=== PATIENT | female | born 1955 | race Caucasian/White ===

== ENCOUNTER 2024-11-12 09:19 | Emergency (ER) | payer MEDICARE, OTHER ==
[~2024-11-12] VITALS: Ht 180.3 cm; Wt 93.0 kg
[2024-11-12 09:21] VITALS: BP 122/63; PULSE 87; RESP 16; TEMP 97.8; O2SAT 94
== END 2024-11-12 13:09 | disposition home or self-care (01) ==
LOC: ER 09:21
DX: J06.9 Acute upper respiratory infection, unspecified (principal); Z88.5 Allergy status to narcotic agent
CPT/HCPCS: 71046; 99283